=== PATIENT | female | born 1945 | race Caucasian/White ===

== ENCOUNTER → 2020-03-10 | Outpatient (CLI) | payer MEDICARE, OTHER ==
[2020-03-10 14:43] LABS: Carbamazepine 10.3 ug/mL (4.0-12.0)
== END | disposition home or self-care (01) ==
LOC: LAB SHORT 11:20 → LAB 11:20
PROVIDERS: Family Medicine
DX: G40.909 Epilepsy, unspecified, not intractable, without status epilepticus (principal)
CPT/HCPCS: 80156

== ENCOUNTER 2022-01-18 11:28 | Emergency (ER) | payer OTHER, MEDICARE ==
[~2022-01-18] VITALS: Ht 157.5 cm; Wt 79.4 kg
== END 2022-01-18 16:38 | disposition home or self-care (01) ==
LOC: ER 11:28
DX: S06.0X0A Concussion without loss of consciousness, initial encounter (principal); W01.10XA Fall on same level from slipping, tripping and stumbling with subsequent striking against unspecified object, initial encounter; J44.9 Chronic obstructive pulmonary disease, unspecified; G40.909 Epilepsy, unspecified, not intractable, without status epilepticus
CPT/HCPCS: 70450; J1885

== ENCOUNTER 2024-11-23 07:27 | Day surgery (SDC) | payer MEDICARE, OTHER ==
[~2024-11-23] VITALS: Ht 157.5 cm; Wt 78.2 kg
[~2024-11-23 07:27] MED LIST: Balanced Salt Epinephrine Irrigation Solution 500 mL IR SCH; Moxifloxacin HCL 0.5 MG/0.1 ML 0.4MLSYR RIGHTEYE SCH; NS 500 ML IV ONE; Ondansetron 4 MG SoluTab MM PRN; PHENYLEPHRINE\\TROPICAMIDE\\TETRACAINE OPHTHALMIC DILATING SOLN RIGHTEYE PRN; Povidone-Iodine 450 DROP/30 ML Solution ONE; Povidone-Iodine 450 DROP/30 ML Solution RIGHTEYE SCH; Tetracaine HCl/Pf 0.5% Opth Soln 4 ml ONE; diazePAM 5 MG,diazePAM 2 MG PO SCH
[2024-11-23] MEDS ORDERED: AMLODIPINE BESY10 MG PO (08:11)
[2024-11-23] MEDS ORDERED: Neurontin800 MG PO (08:12)
[2024-11-23] MEDS ORDERED: LOSA50 PO (08:12)
[2024-11-23] MEDS ORDERED: LOVASTATIN40 MG PO (08:12)
[2024-11-23] MEDS ORDERED: BREYNA 80-4.510.3 GM (08:12)
[2024-11-23] MEDS ORDERED: CARB200 PO (08:15)
--- NOTE | 2024-11-23 08:28 | NUR ---
11/23/24 0828 Isaiah Mathews RIGHT EYE IDENTIFIED CORRECT OP SITE. TETRACAIN PLACED IN RIGHT EYE AT 0816. PLEDGET PLACED IN RIGHT EYE AT 0817. PT TOLERATED WELL. CALL LIGHT WITHIN REACH.
[2024-11-23] MEDS ORDERED: NS 500 ML IV ONE (08:29)
[2024-11-23] MEDS ORDERED: ASPI81CH PO (08:31)
[2024-11-23] MEDS ORDERED: Tetracaine HCl 0.5% Opth Soln 15 ml RIGHTEYE ONE (08:50)
[2024-11-23] MEDS ORDERED: Midazolam HCl 1MG / ML 2ML Vial ONE (08:51)
[2024-11-23 09:18] VITALS: BP 144/68
== END 2024-11-23 09:30 | disposition home or self-care (01) ==
LOC: ORSCSDS 07:27
PROVIDERS: Student in an Organized Health Care Education/Training Program
PROC: 08RJ3JZ Replacement of Right Lens with Synthetic Substitute, Percutaneous Approach (ICD-10-PCS; principal; 2024-11-23 09:00)
DX: H25.813 Combined forms of age-related cataract, bilateral (principal); J44.9 Chronic obstructive pulmonary disease, unspecified; I10 Essential (primary) hypertension; E78.00 Pure hypercholesterolemia, unspecified; R56.9 Unspecified convulsions; Z79.82 Long term (current) use of aspirin; Z79.899 Other long term (current) drug therapy; Z87.891 Personal history of nicotine dependence
CPT/HCPCS: J2003; J2250; J7040; V2632

== ENCOUNTER 2024-12-07 11:37 | Day surgery (SDC) | payer MEDICARE, OTHER ==
[~2024-12-07] VITALS: Ht 157.5 cm; Wt 77.6 kg
[~2024-12-07 11:37] MED LIST changes: +AMLODIPINE BESY10 MG PO; +ASPI81CH PO; +BREYNA 80-4.510.3 GM; +CARB200 PO; +LOSA50 PO; +LOVASTATIN40 MG PO; +Moxifloxacin HCL 0.5 MG/0.1 ML 0.4MLSYR LEFTEYE SCH; -Moxifloxacin HCL 0.5 MG/0.1 ML 0.4MLSYR RIGHTEYE SCH; +Neurontin800 MG PO; -Ondansetron 4 MG SoluTab MM PRN; +PHENYLEPHRINE\\TROPICAMIDE\\TETRACAINE OPHTHALMIC DILATING SOLN LEFTEYE PRN; -PHENYLEPHRINE\\TROPICAMIDE\\TETRACAINE OPHTHALMIC DILATING SOLN RIGHTEYE PRN; +Povidone-Iodine 450 DROP/30 ML Solution LEFTEYE SCH; -Povidone-Iodine 450 DROP/30 ML Solution RIGHTEYE SCH; -diazePAM 5 MG,diazePAM 2 MG PO SCH
[2024-12-07] MEDS ORDERED: NS 500 ML IV ONE (12:08)
--- NOTE | 2024-12-07 12:12 | NUR ---
12/07/24 1212 Molina Hutchinson CALL LIGHT WITHIN REACH. EYE DROPS AROUND 1200.
[2024-12-07] MEDS ORDERED: Midazolam HCl 1MG / ML 2ML Vial ONE (12:38)
[2024-12-07] MEDS ORDERED: HydrALAZINE HCl 20 MG / ML 1ML Vial ONE (12:47)
[2024-12-07 12:59] VITALS: BP 163/69
--- NOTE | 2024-12-07 13:13 | NUR ---
12/07/24 1313 Veronica Hernandez S OBSERVED EYE TO BE SLIGHTLY REDDENED & PT. VERBALIZES FEELING LIKE "IT'S FULL & STINGING." PT. VERBALIZES FEELING OK."IT'LL BE FINE.
== END 2024-12-07 13:16 | disposition home or self-care (01) ==
LOC: ORSCSDS 11:37
PROVIDERS: Student in an Organized Health Care Education/Training Program
PROC: 08RK3JZ Replacement of Left Lens with Synthetic Substitute, Percutaneous Approach (ICD-10-PCS; principal; 2024-12-07 13:00)
DX: H25.812 Combined forms of age-related cataract, left eye (principal); Z96.1 Presence of intraocular lens; I10 Essential (primary) hypertension; E78.00 Pure hypercholesterolemia, unspecified; R56.9 Unspecified convulsions; E66.9 Obesity, unspecified; Z68.31 Body mass index [BMI] 31.0-31.9, adult; Z79.82 Long term (current) use of aspirin; Z79.899 Other long term (current) drug therapy; Z87.891 Personal history of nicotine dependence
CPT/HCPCS: J0360; J2250; J7040; V2632